=== PATIENT | male | born 1995 ===

== ENCOUNTER 2019-02-26 03:00 | Emergency (ER) | payer SELFPAY ==
[~2019-02-26] VITALS: Ht 182.9 cm; Wt 77.3 kg
[2019-02-26 03:04] VITALS: TEMP 98.7
[2019-02-26 03:26] LABS: STREP SCREEN POSITIVE
[2019-02-26] MEDS ORDERED: CLEOCIN HCL300 MG PO (03:50)
[2019-02-26 04:26] VITALS: BP 134/70; PULSE 88
== END 2019-02-26 04:30 | disposition home or self-care (01) ==
LOC: COL.ER 03:00
PROVIDERS: Emergency Medicine
DX: J02.0 Streptococcal pharyngitis (principal); K12.2 Cellulitis and abscess of mouth
CPT/HCPCS: J1885; J8540